=== PATIENT | male | born 1960 | race Two or more races ===

== ENCOUNTER 2022-06-22 13:59 | Emergency (ER) | payer OTHER ==
[~2022-06-22] VITALS: Ht 175.3 cm; Wt 102.3 kg
[2022-06-22 15:35] LABS: Basophils # (auto) 0.1 10 ^3/uL (0-0.2); Eosinophils # (auto) 0.2 10 ^3/uL (0-0.8); Monocytes # (auto) 0.5 10 ^3/uL (0-1.3); Monocytes % (auto) 7.6 % (0.0-12.0); Neutrophils # (auto) 4.7 10 ^3/uL (1.6-8.6)
[2022-06-22 15:37] LABS: Eosinophils % (auto) 2.8 % (0.0-7.0); Hematocrit 22.7 % (41.0-53.0); Hemoglobin 7.4 g/dL (13.5-17.5); Lymphocytes # (auto) 1.3 10 ^3/uL (0.4-5.4); Mean Corpuscular Hemoglobin 28.1 pg (28.0-32.0); Mean Corpuscular Hgb Conc. 32.6 g/dL (32.0-36.0); Mean Corpuscular Volume 86.2 fL (80.0-100.0); Neutrophils % (auto) 69.6 % (37.0-80.0); Red Blood Cells 2.63 10^6/uL (4.5-5.90); Red Cell Distribution Width 17.1 % (11.8-14.3); White Blood Cell 6.8 10^3/uL (4.4-10.8)
[2022-06-22 16:01] LABS: BUN/Creatinine Ratio 14.3; Potassium 4.3 mmol/L (3.5-5.1)
[2022-06-22 16:02] LABS: Calcium 8.6 mg/dL (8.5-10.1)
[2022-06-22 16:05] LABS: Bilirubin, Total 0.2 mg/dL (0.2-1.0)
[2022-06-22] MEDS ORDERED: SODIUM CHLORIDE 0.9% 500 ML IV ONE (17:30)
[2022-06-22] MEDS ORDERED: FUROSEMIDE 100 MG/10ML VIAL IV ONE (17:30)
[2022-06-22 22:00] VITALS: BP 137/48
[2022-06-22 22:01] LABS: Basophils # (auto) 0.1 10 ^3/uL (0-0.2); Eosinophils # (auto) 0.3 10 ^3/uL (0-0.8); Hematocrit 25.6 % (41.0-53.0); Mean Corpuscular Hemoglobin 27.4 pg (28.0-32.0); White Blood Cell 7.1 10^3/uL (4.4-10.8)
[2022-06-22 22:04] LABS: Hemoglobin 7.9 g/dL (13.5-17.5); Lymphocytes # (auto) 1.7 10 ^3/uL (0.4-5.4); Lymphocytes % (auto) 23.3 % (10.0-50.0); Mean Corpuscular Volume 88.3 fL (80.0-100.0); Monocytes # (auto) 0.6 10 ^3/uL (0-1.3); Monocytes % (auto) 8.3 % (0.0-12.0); Neutrophils # (auto) 4.5 10 ^3/uL (1.6-8.6); Neutrophils % (auto) 63.4 % (37.0-80.0); Red Blood Cells 2.89 10^6/uL (4.5-5.90); Red Cell Distribution Width 16.5 % (11.8-14.3)
[2022-06-22 22:07] LABS: Urine Bacteria NONE SEEN /hpf (None Seen); Urine Blood 1+ /uL (Negative); Urine Specific Gravity 1.005 (1.001-1.035); Urine WBC <1 /hpf (0 - 3)
== END 2022-06-22 23:20 | disposition home or self-care (01) ==
LOC: ER 13:59
DX: D64.9 Anemia, unspecified (principal); R60.9 Edema, unspecified; I10 Essential (primary) hypertension; Z20.822 Contact with and (suspected) exposure to COVID-19
CPT/HCPCS: 36415; 80053; 81001; 83605; 84484; 85025; 86850; 86900; 86901; 87426; 93005; 96361; 96374; 99284; J1940; J7040

== ENCOUNTER 2024-02-26 08:29 | Inpatient (IN) | payer OTHER, MEDICAID ==
[~2024-02-26] VITALS: Ht 175.3 cm; Wt 115.7 kg
[2024-02-26 09:00] VITALS: PULSE 52; RESP 19; O2SAT 97
[2024-02-26 09:05] LABS: Urine Bacteria None Seen /hpf (None Seen); Urine WBC None Seen /hpf (0 - 3)
[2024-02-26] MEDS ORDERED: TRAZ-228 PO (09:16)
[2024-02-26] MEDS ORDERED: CHOL20007 PO (09:24)
[2024-02-26] MEDS ORDERED: LISI20TA56 PO (09:24)
[2024-02-26] MEDS ORDERED: PREG150C PO (09:24)
[2024-02-26] MEDS ORDERED: MECL-90 PO (09:24)
[2024-02-26] MEDS ORDERED: OMEG-28 PO (09:24)
[2024-02-26] MEDS ORDERED: MULT-1018 PO (09:24)
[2024-02-26] MEDS ORDERED: MIRA25TA PO (09:24)
[2024-02-26] MEDS ORDERED: ASPI-543 PO (09:24)
[2024-02-26] MEDS ORDERED: TRAM50TA2 PO (09:24)
[2024-02-26] MEDS ORDERED: ATOR40TA52 PO (09:24)
[2024-02-26] MEDS ORDERED: FERR1TAB36 PO (09:24)
[2024-02-26] MEDS ORDERED: ARIP20TA4 PO (09:24)
[2024-02-26] MEDS ORDERED: OMEP20TA PO (09:24)
[2024-02-26 09:26] LABS: Urine Blood Negative /uL (Negative); Urine Clarity Clear (Clear); Urine Color Light-Yellow (Yellow); Urine Protein, UAD Negative (Negative); Urine Specific Gravity 1.016 (1.001-1.035); Urine Urobilinogen Normal (Negative); Urine pH 5.5 (5.0-9.0)
[2024-02-26 09:26] LABS: Basophils # (auto) 0.1 10 ^3/uL (0-0.2); Basophils % (auto) 0.8 % (0.0-2.0); Eosinophils # (auto) 0.1 10 ^3/uL (0-0.8); Eosinophils % (auto) 1.9 % (0.0-7.0); Hematocrit 36.6 % (41.0-53.0); Hemoglobin 12.4 g/dL (13.5-17.5); Lymphocytes # (auto) 1.5 10 ^3/uL (0.4-5.4); Lymphocytes % (auto) 21.2 % (10.0-50.0); Mean Corpuscular Hemoglobin 30.8 pg (28.0-32.0); Mean Corpuscular Volume 90.6 fL (80.0-100.0); Monocytes # (auto) 0.6 10 ^3/uL (0-1.3); Monocytes % (auto) 8.7 % (0.0-12.0); Neutrophils # (auto) 4.8 10 ^3/uL (1.6-8.6); Neutrophils % (auto) 67.4 % (37.0-80.0); Red Blood Cells 4.03 10^6/uL (4.5-5.90); Red Cell Distribution Width 13.4 % (11.8-14.3); White Blood Cell 7.1 10^3/uL (4.4-10.8)
[2024-02-26 09:31] LABS: Chloride 109 mmol/L (98-107); Sodium 136 mmol/L (136-145)
[2024-02-26 09:32] LABS: Anion Gap 6 (5-15); Calcium 10.3 mg/dL (8.5-10.1); Carbon Dioxide 21 mmol/L (20-30)
[2024-02-26 09:37] LABS: BUN/Creatinine Ratio 20.3 (10.0-20.0); Blood Urea Nitrogen 27 mg/dL (9-23); Glucose 106 mg/dL (74-106)
[2024-02-26] MEDS: SODIUM CHLORIDE 0.9% 1,000 ML IV ONE (09:40)
[2024-02-26] MEDS: MORPHINE SULFATE 4 MG/ML SYR/VIAL IV ONE (09:41)
[2024-02-26] MEDS: ONDANSETRON HCL 4 MG/2 ML VIAL IV ONE (09:42)
[2024-02-26 09:51] LABS: Potassium 5.7 mmol/L (3.5-5.1)
[2024-02-26] MEDS: ALBUTEROL SULF 2.5 MG/0.5ML(0.5%) NEB SOLN NEB ONE (10:02)
[2024-02-26] MEDS: CALCIUM GLUC 1,000mg/50ml-NS 50 ML IV ONE (10:15)
[2024-02-26] MEDS: SODIUM ZIRCONIUM CYCL 10 GM PAK PO ONE (10:24)
[2024-02-26] MEDS: FUROSEMIDE 20 MG/2 ML VIAL IV ONE (10:24)
[2024-02-26] MEDS: SODIUM BICARB 8.4% 50Meq/50ml SYR INJ IV ONE (10:24)
[2024-02-26] MEDS: DEXTROSE (50%) 50ML SYRG IV ONE (10:24)
[2024-02-26] MEDS: InsuLIN REG 1unit/0.01ml Soln (100units/ml) IV ONE (10:40)
[2024-02-26] MEDS: HYDROmorphone HCL 2 MG/ML VL/or syr IV ONE (11:04)
[2024-02-26] MEDS ORDERED: DOCUSATE SOD 100 MG CAP PO PRN (11:30)
[2024-02-26] MEDS ORDERED: ACETAMINOPHEN 325 MG TAB PO PRN (11:30)
[2024-02-26] MEDS ORDERED: DEXTROSE (50%) 50ML SYRG IV ONE (11:45)
[2024-02-26] MEDS ORDERED: DEXTROSE (50%) 50ML SYRG IV PRN (11:45)
[2024-02-26] MEDS: ONDANSETRON HCL 4 MG/2 ML VIAL IV PRN (13:15)
[2024-02-26 13:17] LABS: Creatinine, Urine 75.97 mg/dL (30.0-125.0)
[2024-02-26] MEDS: SODIUM CHLOR 0.9% PF (SALINE LOCK) 10ML VIAL/SYR IV SCH (14:09)
[2024-02-26] MEDS: HYDROmorphone HCL 2 MG/ML VL/or syr IV PRN (17:02)
[2024-02-26] MEDS: ACCU-CHEK COMFORT CURVE STRIP VI SCH (17:15)
[2024-02-26] MEDS: InsuLIN REG 1unit/0.01ml Soln (100units/ml) SC SCH (17:16)
[2024-02-26 20:00] VITALS: PULSE 22
[2024-02-26 21:00] VITALS: BP 105/63; PULSE 69; RESP 20; TEMP 97.8; O2SAT 98
[2024-02-26] MEDS: ATORVASTATIN 20 MG TAB PO SCH (22:22)
[2024-02-26 22:50] VITALS: PULSE 60; O2SAT 98
[2024-02-27] VITALS (8 sets, daily range): BP systolic 101–114; BP diastolic 43–63; PULSE 57–90; RESP 16–20; TEMP 97.1–98.2; O2SAT 94–98
[2024-02-27 06:03] LABS: Basophils # (auto) 0 10 ^3/uL (0-0.2); Basophils % (auto) 0.4 % (0.0-2.0); Eosinophils # (auto) 0.1 10 ^3/uL (0-0.8); Eosinophils % (auto) 1.1 % (0.0-7.0); Hematocrit 33.8 % (41.0-53.0); Hemoglobin 11.5 g/dL (13.5-17.5); Lymphocytes # (auto) 1.6 10 ^3/uL (0.4-5.4); Lymphocytes % (auto) 19.4 % (10.0-50.0); Mean Corpuscular Hgb Conc. 33.9 g/dL (32.0-36.0); Mean Corpuscular Volume 91.2 fL (80.0-100.0); Monocytes # (auto) 0.8 10 ^3/uL (0-1.3); Monocytes % (auto) 9.4 % (0.0-12.0); Neutrophils # (auto) 5.9 10 ^3/uL (1.6-8.6); Neutrophils % (auto) 69.7 % (37.0-80.0); Nucleated Red Blood Cells % 0.1 %; Red Blood Cells 3.71 10^6/uL (4.5-5.90); Red Cell Distribution Width 13.1 % (11.8-14.3); White Blood Cell 8.4 10^3/uL (4.4-10.8)
[2024-02-27 06:21] LABS: Calcium 9.7 mg/dL (8.5-10.1); Chloride 108 mmol/L (98-107); Potassium 4.4 mmol/L (3.5-5.1); Sodium 139 mmol/L (136-145)
[2024-02-27 06:22] LABS: Anion Gap 6 (5-15); Carbon Dioxide 25 mmol/L (20-30)
[2024-02-27 06:28] LABS: Glucose 91 mg/dL (74-106)
[2024-02-27 06:36] LABS: BUN/Creatinine Ratio 19.5 (10.0-20.0); Blood Urea Nitrogen 26 mg/dL (9-23)
[2024-02-27] MEDS: PANTOPRAZOLE 40 MG TAB PO SCH (09:13)
[2024-02-27] MEDS: MULTIPLE VITAMIN TAB PO SCH (09:13)
[2024-02-27] MEDS: HYDROcodone-ACET 5/325MG TAB PO PRN (09:21)
[2024-02-27] MEDS: MIRABEGRON BASE 25 MG PO SCH (10:00)
[2024-02-27] MEDS: FERROUS SULFATE 65 MG PO SCH (10:00)
[2024-02-27] MEDS: CHOLECALCIFEROL (VITD3) 1,000UNIT=25mCg TAB PO SCH (10:00)
[2024-02-27] MEDS: traZODone HCL 50 MG TAB PO PRN (21:49)
[2024-02-28 01:00] VITALS: BP 110/53; PULSE 61; RESP 16; TEMP 98.4; O2SAT 98
[2024-02-28 05:00] VITALS: BP 103/54; PULSE 65; RESP 16; TEMP 98.4; O2SAT 95
[2024-02-28 07:25] LABS: Basophils # (auto) 0.1 10 ^3/uL (0-0.2); Basophils % (auto) 0.6 % (0.0-2.0); Eosinophils # (auto) 0.2 10 ^3/uL (0-0.8); Eosinophils % (auto) 2.4 % (0.0-7.0); Hematocrit 37.2 % (41.0-53.0); Hemoglobin 12.7 g/dL (13.5-17.5); Lymphocytes # (auto) 2.1 10 ^3/uL (0.4-5.4); Lymphocytes % (auto) 23.2 % (10.0-50.0); Mean Corpuscular Hemoglobin 30.7 pg (28.0-32.0); Mean Corpuscular Hgb Conc. 34.1 g/dL (32.0-36.0); Mean Corpuscular Volume 90.1 fL (80.0-100.0); Monocytes # (auto) 0.6 10 ^3/uL (0-1.3); Monocytes % (auto) 6.6 % (0.0-12.0); Neutrophils # (auto) 6.1 10 ^3/uL (1.6-8.6); Neutrophils % (auto) 67.2 % (37.0-80.0); Red Blood Cells 4.13 10^6/uL (4.5-5.90); Red Cell Distribution Width 13.3 % (11.8-14.3)
[2024-02-28 07:37] LABS: Alanine Aminotransferase 26 U/L (7-40); Albumin 4.6 g/dL (3.2-4.8); Alkaline Phosphatase 89 U/L (46-116); Anion Gap 9 (5-15); Aspartate Aminotransferase 28 U/L (13-40); BUN/Creatinine Ratio 16.8 (10.0-20.0); Bilirubin, Total 0.5 mg/dL (0.2-1.0); Blood Urea Nitrogen 21 mg/dL (9-23); Calcium 10.2 mg/dL (8.5-10.1); Carbon Dioxide 22 mmol/L (20-30); Chloride 107 mmol/L (98-107); Glucose 114 mg/dL (74-106); Potassium 4.3 mmol/L (3.5-5.1); Sodium 138 mmol/L (136-145); Total Protein 7.3 g/dL (5.7-8.2)
[2024-02-28 08:00] VITALS: PULSE 49; PULSE 72; RESP 18
[2024-02-28 09:19] VITALS: BP 114/66; PULSE 60; RESP 18; TEMP 97.3; O2SAT 95
[2024-02-28 11:49] VITALS: BP 112/61; TEMP 36.3
[2024-02-29] MEDS ORDERED: ASPirin-EC 81 mg tab PO SCH (10:00)
== END 2024-02-28 11:50 | disposition home or self-care (01) | DRG 391 ==
LOC: ER 08:29 → TELE 11:19 → TELE-WESTW 19:17
PROVIDERS: ADMIT Internal Medicine; ATTEND Internal Medicine
PROC: 5A09357 Assistance with Respiratory Ventilation, Less than 24 Consecutive Hours, Continuous Positive Airway Pressure (ICD-10-PCS; principal; 2024-02-26)
DX: K21.9 Gastro-esophageal reflux disease without esophagitis (principal); N17.0 Acute kidney failure with tubular necrosis; R00.1 Bradycardia, unspecified; E87.5 Hyperkalemia; I95.9 Hypotension, unspecified; N20.0 Calculus of kidney; E78.5 Hyperlipidemia, unspecified; I12.9 Hypertensive chronic kidney disease with stage 1 through stage 4 chronic kidney disease, or unspecified chronic kidney disease; E11.22 Type 2 diabetes mellitus with diabetic chronic kidney disease; N18.30 Chronic kidney disease, stage 3 unspecified; K80.20 Calculus of gallbladder without cholecystitis without obstruction; I25.10 Atherosclerotic heart disease of native coronary artery without angina pectoris; I44.0 Atrioventricular block, first degree; E66.01 Morbid (severe) obesity due to excess calories; Z95.1 Presence of aortocoronary bypass graft; Z87.442 Personal history of urinary calculi; Z79.82 Long term (current) use of aspirin; Z79.899 Other long term (current) drug therapy; Z82.3 Family history of stroke; Z80.0 Family history of malignant neoplasm of digestive organs; Z82.49 Family history of ischemic heart disease and other diseases of the circulatory system; Z87.891 Personal history of nicotine dependence; Z86.73 Personal history of transient ischemic attack (TIA), and cerebral infarction without residual deficits; Z68.37 Body mass index [BMI] 37.0-37.9, adult
CPT/HCPCS: 36415; 74176; 76775; 80048; 80053; 81001; 82306; 82570; 82962; 84132; 84300; 84484; 85025; 93005; 93306; 94640; 94660; 96361; 96374; 96375; G0378; J1815; J2405